=== PATIENT | female | born 1950 | race Caucasian/White ===

== ENCOUNTER 2017-07-19 08:00 | Outpatient (CLI) | payer MEDICARE, OTHER | END 2017-07-19 08:01 | LOC: LAB.R 08:00 | PROVIDERS: ATTEND Nurse Practitioner Primary Care | DX: N30.00 Acute cystitis without hematuria (principal) | CPT/HCPCS: 87086 ==

== ENCOUNTER 2019-05-13 07:33 | Outpatient (CLI) | payer MEDICARE, OTHER ==
[2019-05-13 08:44] LABS: ALBUMIN 4.4 g/dL (3.2-5.5); ALBUMIN/GLOBULIN RATIO 1.8 (1.0-2.2); BILIRUBIN,TOTAL 0.5 mg/dL (0.2-1.0); CALCIUM 9.3 mg/dL (8.5-10.3); CREATININE 0.6 mg/dL (0.4-1.0); TOTAL PROTEIN 6.9 g/dL (6.7-8.2)
[2019-05-13 08:46] LABS: BASOPHILS # (AUTO) 0.1 10^3/uL (0.0-0.1); BASOPHILS % (AUTO) 1.1 %; EOSINOPHILS # (AUTO) 0.2 10^3/uL (0.0-0.7); EOSINOPHILS % (AUTO) 4.2 %; HGB - HEMOGLOBIN 13.4 g/dL (12.0-16.0); LYMPHOCYTES % (AUTO) 37.6 %; MEAN CORPUSCULAR HEMOGLOBIN 30.2 pg (27.0-31.0); MEAN CORPUSCULAR HGB CONC 32.8 g/dL (32.0-36.0); MEAN CORPUSCULAR VOLUME 92.1 fL (81.0-99.0); MONOCYTES # (AUTO) 0.4 10^3/uL (0.0-1.0); MONOCYTES % (AUTO) 7.4 %; NEUTROPHILS # (AUTO) 2.6 10^3/uL (1.5-6.6); NEUTROPHILS % (AUTO) 49.5 %; PLT - PLATELET COUNT 223 10^3/uL (130-450); RED BLOOD COUNT 4.43 10^6/uL (4.20-5.40); RED CELL DISTRIBUTION WIDTH 12.6 % (12.0-15.0); WHITE BLOOD COUNT 5.2 x10^3/uL (4.8-10.8)
[2019-05-13 09:00] LABS: THYROID STIMULATING HORMONE 4.12 uIU/mL (0.34-5.60)
[2019-05-13 09:02] LABS: FREE T4 (FREE THYROXINE) 0.87 ng/dL (0.58-1.64)
== END 2019-05-13 07:34 | disposition home or self-care (01) ==
LOC: LAB 07:33
PROVIDERS: ATTEND Family Medicine
DX: J45.909 Unspecified asthma, uncomplicated (principal); E03.9 Hypothyroidism, unspecified
CPT/HCPCS: 36415; 80053; 84439; 84443; 84481; 85025

== ENCOUNTER 2019-05-29 17:53 | Outpatient (CLI) | payer MEDICARE, OTHER ==
--- NOTE | 2019-05-29 18:25 | XRAY Report ---
Reason: COUGH,BRONCHITIS Procedure Date: 05/29/2019 Accession Number: [id number] / [id number] Procedure: XR - Chest 2 View X-Ray CPT Code: 65991 Final Report FULL RESULT: EXAM: CHEST RADIOGRAPHY EXAM DATE: 05/29/2019 05:59 PM. CLINICAL HISTORY: COUGH, BRONCHITIS. COMPARISON: None. TECHNIQUE: 2 views. FINDINGS: Lungs/Pleura: A large well-defined opacity in the right perihilar location measuring 11 x 9.6 cm, with tiny foci of calcifications within the opacity. Differentials include a pulmonary mass or mediastinal mass. Not likely to be vascular. Detailed evaluation is recommended on a contrast-enhanced CT chest. Mediastinum: Heart and mediastinal contours are unremarkable. Other: None. IMPRESSION: A large 11 x 9.6 cm well-defined opacity in right middle mediastinum with tiny foci of calcifications. Differentials include a pulmonary mass or mediastinal mass. Not likely to be vascular. Detailed evaluation is recommended on a contrast-enhanced CT chest. RADIA
[2019-05-29 19:01] LABS: BASOPHILS # (AUTO) 0.1 10^3/uL (0.0-0.1); BASOPHILS % (AUTO) 0.8 %; EOSINOPHILS # (AUTO) 0.5 10^3/uL (0.0-0.7); EOSINOPHILS % (AUTO) 6.8 %; HGB - HEMOGLOBIN 12.5 g/dL (12.0-16.0); LYMPHOCYTES # (AUTO) 2.5 10^3/uL (1.5-3.5); LYMPHOCYTES % (AUTO) 38.2 %; MEAN CORPUSCULAR HEMOGLOBIN 28.9 pg (27.0-31.0); MEAN CORPUSCULAR HGB CONC 32.3 g/dL (32.0-36.0); MEAN CORPUSCULAR VOLUME 89.6 fL (81.0-99.0); MEAN PLATELET VOLUME 9.7 fL (7.9-10.8); MONOCYTES # (AUTO) 0.5 10^3/uL (0.0-1.0); MONOCYTES % (AUTO) 6.8 %; NEUTROPHILS # (AUTO) 3.2 10^3/uL (1.5-6.6); NEUTROPHILS % (AUTO) 47.2 %; PLT - PLATELET COUNT 212 10^3/uL (130-450); RED BLOOD COUNT 4.32 10^6/uL (4.20-5.40); RED CELL DISTRIBUTION WIDTH 12.2 % (12.0-15.0); WHITE BLOOD COUNT 6.7 x10^3/uL (4.8-10.8)
== END 2019-05-29 17:54 | disposition home or self-care (01) ==
LOC: DI 17:53
PROVIDERS: ATTEND Family Medicine
DX: J98.4 Other disorders of lung (principal); J40 Bronchitis, not specified as acute or chronic; J30.2 Other seasonal allergic rhinitis; R05 Cough; E03.9 Hypothyroidism, unspecified
CPT/HCPCS: 36415; 71046; 85025

== ENCOUNTER 2019-06-06 10:11 | Outpatient (CLI) | payer MEDICARE, OTHER ==
[2019-06-06] MEDS ORDERED: IOVERSOL 320 100 ML VIAL IVP ONE ×2 (10:20→11:33)
--- NOTE | 2019-06-06 11:55 | CT Report ---
Reason: LUNG MASS, COUGH Procedure Date: 06/06/2019 Accession Number: [id number] / [id number] Procedure: CT - CHEST W CPT Code: Final Report FULL RESULT: EXAM: CT CHEST EXAM DATE: 06/06/2019 10:41 AM. CLINICAL HISTORY: Lung mass, cough. COMPARISONS: CHEST 2 VIEW 05/29/2019 5:59 PM. TECHNIQUE: Routine helical CT imaging was performed through the chest. IV contrast: 80 cc of Optiray 320. Reconstructions: Coronal and sagittal. In accordance with CT protocol optimization, one or more of the following dose reduction techniques were utilized for this exam: automated exposure control, adjustment of mA and/or KV based on patient size, or use of iterative reconstructive technique. FINDINGS: Lungs/Pleura: There is a 10.5 x 9.7 x 10.3 cm right midlung mass extending along the right hilum and along the margins of the right mainstem bronchus and right upper and right lower lobe bronchi with associated mass-effect. The mass involves the right upper, right middle and right lower lobe. Within the mass are extensive scattered irregular calcifications. There are interspersed small areas of low density which when measured appear to be of density similar to that of fat although this is not the dominant component of the mass. The margins of the mass are well delineated. There is splaying and displacement of the right pulmonary artery. There are emphysematous changes. Posterior right upper lobe subpleural nodular opacity on image 94, series 4 measuring 8 mm. Within the left lower lobe is a 5.5 mm nodule on image 245, series 4. Anterior right middle lobe 3 mm nodule image 185, series 4 and inferior right middle lobe 2 mm nodule on image 200, series 4. Mediastinum: Heart size is normal. Coronary artery calcified plaque. Visualized thyroid gland is unremarkable. The mass is present along the right hilum displacing portions of the mediastinum on the right as well as a right pulmonary arteries. No enlarged mediastinal or hilar lymph nodes are definitively seen. The largest lymph node is precarinal measuring up to 5-6 mm in short axis dimension. A sending aorta is prominent measuring 4 cm. Thoracic aortic atherosclerosis . Bones: Degenerative changes of the thoracic spine. No acute osseous abnormalities. No osseous lesions. Visualized Abdomen: Abdominal aortic atherosclerosis. Otherwise included portions of the upper abdomen are unremarkable. Other: None. IMPRESSION: 1. Right midlung heterogeneous 10.5 cm mass along the right hilum with extensive involvement of multiple lobes of the right lung with adjacent mass effect. Scattered irregular calcifications are seen throughout the mass with areas of low attenuation also seen although not dominant within the mass which raises the possibility of small foci of fat. The mass has features which can be seen with a hamartoma. There is associated mass effect and narrowing of the right sided bronchi without complete occlusion. Considering the patient's history of visualized emphysematous changes, a primary bronchogenic lesion will need to be excluded. 2. Posterior right upper lobe and left lower lobe nodular opacities which warrant continued surveillance with follow-up chest CT in 6 months. 3. No enlarged mediastinal or hilar lymph nodes. 4. Coronary and thoracic aortic atherosclerosis. [facility] The call report notification system was initiated by Dr. Lowell Martinez at 11:45 AM on 06/06/2019. The above call report findings were discussed with Gerardo Iyer by Dr. Lowell Martinez at 11:52 AM on 06/06/2019.
== END 2019-06-06 10:12 | disposition home or self-care (01) ==
LOC: DI 10:11
PROVIDERS: ATTEND Family Medicine
DX: R91.8 Other nonspecific abnormal finding of lung field (principal); I25.10 Atherosclerotic heart disease of native coronary artery without angina pectoris; I70.0 Atherosclerosis of aorta
CPT/HCPCS: 71260; Q9967

== ENCOUNTER 2020-01-09 17:13 | Outpatient (CLI) | payer MEDICARE, BC | END 2020-01-09 17:14 | disposition home or self-care (01) | LOC: COV 17:13 | PROVIDERS: ATTEND Family Medicine | DX: R50.9 Fever, unspecified (principal); Z20.828 Contact with and (suspected) exposure to other viral communicable diseases; R53.83 Other fatigue; R09.81 Nasal congestion; J02.9 Acute pharyngitis, unspecified ==

== ENCOUNTER 2020-02-17 15:32 | Outpatient (CLI) | payer MEDICARE, BC ==
[2020-02-17 16:01] LABS: BASOPHILS # (AUTO) 0.1 10^3/uL (0.0-0.1); BASOPHILS % (AUTO) 0.6 %; EOSINOPHILS % (AUTO) 0.5 %; HGB - HEMOGLOBIN 13.1 g/dL (12.0-16.0); LYMPHOCYTES # (AUTO) 2.1 10^3/uL (1.5-3.5); LYMPHOCYTES % (AUTO) 26.3 %; MEAN CORPUSCULAR HEMOGLOBIN 28.2 pg (27.0-31.0); MEAN CORPUSCULAR HGB CONC 32.1 g/dL (32.0-36.0); MEAN CORPUSCULAR VOLUME 87.9 fL (81.0-99.0); MEAN PLATELET VOLUME 9.3 fL (7.9-10.8); MONOCYTES # (AUTO) 0.5 10^3/uL (0.0-1.0); MONOCYTES % (AUTO) 6.7 %; NEUTROPHILS # (AUTO) 5.3 10^3/uL (1.5-6.6); NEUTROPHILS % (AUTO) 65.5 %; PLT - PLATELET COUNT 248 10^3/uL (130-450); RED BLOOD COUNT 4.64 10^6/uL (4.20-5.40); RED CELL DISTRIBUTION WIDTH 12.7 % (12.0-15.0); WHITE BLOOD COUNT 8.1 x10^3/uL (4.8-10.8)
[2020-02-17 16:24] LABS: ALBUMIN 4.5 g/dL (3.2-5.5); ALBUMIN/GLOBULIN RATIO 1.6 (1.0-2.2); ALKALINE PHOSPHATASE 111 IU/L (42-121); ALT ALANINE AMINOTRANSFERASE 14 IU/L (10-60); AST ASPARTATE AMINOTRANSFERASE 16 IU/L (10-42); BILIRUBIN,TOTAL 0.4 mg/dL (0.2-1.0); BUN - BLOOD UREA NITROGEN 15 mg/dL (6-20); CALCIUM 9.6 mg/dL (8.5-10.3); CARBON DIOXIDE - CO2 29 mmol/L (21-32); CHLORIDE 97 mmol/L (101-111); CREATININE 0.5 mg/dL (0.4-1.0); GLUCOSE 101 mg/dL (70-100); SODIUM 137 mmol/L (135-145); TOTAL PROTEIN 7.3 g/dL (6.7-8.2)
[2020-02-17 16:58] LABS: CRP - C-REACTIVE PROTEIN < 1.0 mg/dL (0-1.0)
== END 2020-02-17 15:33 | disposition home or self-care (01) ==
LOC: LAB 15:32
PROVIDERS: ATTEND Family Medicine
DX: R63.4 Abnormal weight loss (principal)
CPT/HCPCS: 36415; 80053; 85025; 85651; 86140

== ENCOUNTER 2020-03-13 10:36 | Outpatient (CLI) | payer MEDICARE, BC ==
[2020-03-13 11:33] LABS: THYROID STIMULATING HORMONE 3.04 uIU/mL (0.34-5.60)
[2020-03-13 11:35] LABS: FREE T3 3.26 pg/mL (2.5-3.9); FREE T4 (FREE THYROXINE) 1.06 ng/dL (0.58-1.64)
== END 2020-03-13 10:37 | disposition home or self-care (01) ==
LOC: LAB 10:36
PROVIDERS: ATTEND Nurse Practitioner
DX: R53.83 Other fatigue (principal); R63.4 Abnormal weight loss; E03.9 Hypothyroidism, unspecified
CPT/HCPCS: 36415; 82024; 82533; 84439; 84443; 84481; 86376; 86800

== ENCOUNTER 2020-04-10 19:55 | Outpatient (CLI) | payer MEDICARE, BC | END 2020-04-10 19:56 | disposition home or self-care (01) | LOC: COV 19:55 | PROVIDERS: ATTEND Surgery | DX: Z01.812 Encounter for preprocedural laboratory examination (principal); Z20.822 Contact with and (suspected) exposure to COVID-19; R63.4 Abnormal weight loss; R63.0 Anorexia ==

== ENCOUNTER 2020-04-16 08:40 | Day surgery (SDC) | payer MEDICARE, BC ==
[2020-04-16] MEDS ORDERED: LACTATED RINGERS 1,000 ML IV ONE ×2 (08:51→11:12)
--- NOTE | 2020-04-16 10:25 | ANESTHESIA ---
Pre-Anesthesia VS, & Labs - Diagnosis anorexia and wt loss - Procedure EGD Vital Signs: Temp Pulse Resp BP Pulse Ox 36.2 C L 105 H 12 131/80 H 99 04/16/20 08:51 04/16/20 08:51 04/16/20 08:51 04/16/20 08:51 04/16/20 08:51 Height: 5 ft 8 in Weight (kg): 58.8 kg Body Mass Index: 19.7 BMI Classification: Healthy weight - NPO >8 hours - Is Patient ?: No Home Medications and Allergies Home Medications: Ambulatory Orders Albuterol 1 inhaler INH PRN PRN 04/15/20 Budesonide/Formoterol Fumarate [Symbicort 160-4.5 Mcg Inhaler] 1 inh IN BID 04/15/20 Fexofenadine/Pseudoephedrine [Paulette-D 12 Hour Tablet] 1 tab PO DAILY 04/15/20 Levothyroxine [Synthroid] 50 mcg PO DAILY 04/15/20 Albuterol 1 inhaler INH PRN PRN 04/15/20 Budesonide/Formoterol Fumarate [Symbicort 160-4.5 Mcg Inhaler] 1 inh IN BID 0 04/15/20 Fexofenadine/Pseudoephedrine [Paulette-D 12 Hour Tablet] 1 tab PO DAILY 04/15/20 Levothyroxine [Synthroid] 50 mcg PO DAILY 04/15/20 Allergies/Adverse Reactions: Allergies Allergy/AdvReac Type Severity Reaction Status Date / Time azithromycin [From Zithromax] AdvReac Rash Verified 04/15/20 16:25 tetracycline AdvReac Rash Verified 04/15/20 16:25 Anes History & Medical History - Anesthetic History Anesthesia Complications: reports: No previous complications - Medical History Cardiovascular: reports: Arrhythmia (SVT history), Other Pulmonary: reports: Asthma, COPD, Shortness of breath, Other Gastrointestinal: reports: Other Urinary: reports: None Musculoskeletal: reports: Osteoarthritis Endocrine/Autoimmune: reports: HyPOthyroidism Skin: reports: None Exam General: Alert Dental: WNL Mallampati classification: I Thyromental Distance: greater than 6 cm Respiratory: Lungs clear (on left, absent on right) Cardiovascular: Regular rate Plan Anesthesia Type: MAC Consent for Procedure(s) Verified and Reviewed: Yes Code Status: Attempt Resuscitation ASA classification: 3-Severe systemic disease Is this case an emergency?: No
[2020-04-16] MEDS ORDERED: KETAMINE 500 MG/10 ML VIAL ONE (10:47)
[2020-04-16] MEDS ORDERED: PROPOFOL 200 MG/20 ML VIAL IVP ONE (10:51)
[2020-04-16] MEDS ORDERED: LIDOCAINE-MPF 2% 5 ML VIAL ONE (10:52)
--- NOTE | 2020-04-16 11:09 | ANESTHESIA POST OP EVALUATION ---
Anesthesia Post Eval - Post Anesthesia Eval Vitals: Last Vital Signs Temp 36.2 C L 04/16/20 08:51 Pulse 105 H 04/16/20 08:51 Resp 12 04/16/20 08:51 BP 131/80 H 04/16/20 08:51 Pulse Ox 99 04/16/20 08:51 CV Function Including HR & BP: positive: Stable Pain Control: positive: Satisfactory Nausea & Vomiting: positive: Negative Mental Status: positive: Patient Participates Respiratory Status: Airway Patent Hydration Status: Satisfactory Anesthesia Complications: positive: None
[2020-04-16 11:14] VITALS: BP 118/66
== END 2020-04-16 08:41 | disposition home or self-care (01) ==
LOC: SDS 08:40
PROVIDERS: ATTEND Surgery
PROC: 0DB98ZX Excision of Duodenum, Via Natural or Artificial Opening Endoscopic, Diagnostic (ICD-10-PCS; 2020-04-16)
PROC: 0DB38ZX Excision of Lower Esophagus, Via Natural or Artificial Opening Endoscopic, Diagnostic (ICD-10-PCS; 2020-04-16)
PROC: 0DB48ZX Excision of Esophagogastric Junction, Via Natural or Artificial Opening Endoscopic, Diagnostic (ICD-10-PCS; 2020-04-16)
PROC: 0DB68ZX Excision of Stomach, Via Natural or Artificial Opening Endoscopic, Diagnostic (ICD-10-PCS; principal; 2020-04-16 09:45)
DX: K29.70 Gastritis, unspecified, without bleeding (principal); R63.4 Abnormal weight loss; R11.0 Nausea; R63.0 Anorexia; I47.1 Supraventricular tachycardia; J44.9 Chronic obstructive pulmonary disease, unspecified; E03.9 Hypothyroidism, unspecified; Z79.51 Long term (current) use of inhaled steroids; J45.909 Unspecified asthma, uncomplicated
CPT/HCPCS: 43239; J7120

== ENCOUNTER 2020-05-19 11:17 | Outpatient (CLI) | payer MEDICARE, BC ==
--- NOTE | 2020-05-19 11:46 | XRAY Report ---
PROCEDURE: Chest 2 View X-Ray INDICATIONS: HAMARTOMA/ NAUSEA/ FATIGUE TECHNIQUE: 2 view(s) of the chest. COMPARISON: None. FINDINGS: Surgical changes and devices: Median sternotomy. Lungs and pleura: Status post right pneumonectomy. Left lung is clear. Mediastinum: Mediastinal contours are normal. Heart size is normal. Bones and chest wall: No suspicious bony abnormalities. Soft tissues appear unremarkable. IMPRESSION: Postsurgical sequelae. No acute process. Reviewed by: Germain Rios MD on 05/19/2020 11:45 AM PST Approved by: Germain Rios MD on 05/19/2020 11:45 AM PST Station ID: [id number]
== END 2020-05-19 11:18 | disposition home or self-care (01) ==
LOC: DI 11:17
PROVIDERS: ATTEND Family Medicine
DX: Q85.9 Phakomatosis, unspecified (principal); R11.0 Nausea; R53.83 Other fatigue; Z90.2 Acquired absence of lung [part of]

== ENCOUNTER 2020-05-29 11:04 | Outpatient (CLI) | payer MEDICARE, BC ==
--- NOTE | 2020-05-29 12:39 | CT Report ---
PROCEDURE: CHEST WO INDICATIONS: HAMARTOMA OF R LUNG TECHNIQUE: Noncontrast 5 mm thick sections acquired from the pulmonary apices to the posterior costophrenic angl es. 7 mm thick coronal and sagittal MIP reformats were then acquired. For radiation dose reduction, the following was used: automated exposure control, adjustment of mA and/or kV according to patient size. COMPARISON: 06/06/2019 CT chest. FINDINGS: Image quality: Excellent. No pneumothorax. Large right pleural effusion. Postsurgical changes related to right lung surgical re section. There is associated volume loss. No acute focal consolidation seen in the left lung. Mediastinum: Heart size is normal. Moderate coronary artery calcifications. No pericardial effusion. No mediastinal adenopathy by size criteria. Thoracic aorta and central pulmonary arteries are norm al in size. Esophagus is normal in caliber. No hiatal hernia. Bones and chest wall: No suspicious bony lesions. No vertebral body compression fractures. No axil pj or supraclavicular adenopathy by size criteria. The thyroid is normal in size. Abdomen: Visualized upper abdominal solid organs and bowel loops appear normal in the absence of con trast. IMPRESSION: Postsurgical changes with residual right pleural effusion. No acute consolidation within the left lung. No evidence of metastatic disease. Moderate coronary artery disease. Reviewed by: Armando Meyers MD on 05/29/2020 12:38 PM PST Approved by: Armando Meyers MD on 05/29/2020 12:38 PM PST Station ID: [id number]
== END 2020-05-29 11:05 | disposition home or self-care (01) ==
LOC: DI 11:04
PROVIDERS: ATTEND Internal Medicine
DX: J90 Pleural effusion, not elsewhere classified (principal); I25.10 Atherosclerotic heart disease of native coronary artery without angina pectoris

== ENCOUNTER 2020-07-31 11:38 | Outpatient (CLI) | payer MEDICARE, BC ==
[2020-07-31 11:57] LABS: BASOPHILS # (AUTO) 0.1 10^3/uL (0.0-0.1); BASOPHILS % (AUTO) 0.8 %; EOSINOPHILS # (AUTO) 0.1 10^3/uL (0.0-0.7); EOSINOPHILS % (AUTO) 1.5 %; HGB - HEMOGLOBIN 14.1 g/dL (12.0-16.0); LYMPHOCYTES # (AUTO) 1.6 10^3/uL (1.5-3.5); LYMPHOCYTES % (AUTO) 24.7 %; MEAN CORPUSCULAR HEMOGLOBIN 28.8 pg (27.0-31.0); MEAN CORPUSCULAR HGB CONC 32.8 g/dL (32.0-36.0); MEAN CORPUSCULAR VOLUME 87.8 fL (81.0-99.0); MEAN PLATELET VOLUME 9.3 fL (7.9-10.8); MONOCYTES # (AUTO) 0.5 10^3/uL (0.0-1.0); MONOCYTES % (AUTO) 6.9 %; NEUTROPHILS # (AUTO) 4.3 10^3/uL (1.5-6.6); NEUTROPHILS % (AUTO) 65.9 %; PLT - PLATELET COUNT 290 10^3/uL (130-450); RED CELL DISTRIBUTION WIDTH 13.2 % (12.0-15.0); WHITE BLOOD COUNT 6.5 x10^3/uL (4.8-10.8)
[2020-07-31 12:15] LABS: ALBUMIN 4.4 g/dL (3.2-5.5); ALBUMIN/GLOBULIN RATIO 1.6 (1.0-2.2); ALKALINE PHOSPHATASE 119 IU/L (42-121); ALT ALANINE AMINOTRANSFERASE 15 IU/L (10-60); AST ASPARTATE AMINOTRANSFERASE 19 IU/L (10-42); BILIRUBIN,TOTAL 0.6 mg/dL (0.2-1.0); BUN - BLOOD UREA NITROGEN 13 mg/dL (6-20); CALCIUM 9.8 mg/dL (8.5-10.3); CARBON DIOXIDE - CO2 28 mmol/L (21-32); CHLORIDE 99 mmol/L (101-111); CHOLESTEROL 202 mg/dL; CREATININE 0.5 mg/dL (0.4-1.0); GFR - MDRD 122 (>89); GLUCOSE 108 mg/dL (70-100); HDL CHOLESTEROL 68 mg/dL; LDL CHOLESTEROL,CALCULATED 110 mg/dL; LDL/HDL RATIO 1.6 (<4.4); SODIUM 138 mmol/L (135-145); TOTAL PROTEIN 7.2 g/dL (6.7-8.2); TRIGLYCERIDES 122 mg/dL; VLDL CHOLESTEROL 24 mg/dL
[2020-07-31 17:31] LABS: THYROID STIMULATING HORMONE 1.54 uIU/mL (0.34-5.60)
== END 2020-07-31 11:39 | disposition home or self-care (01) ==
LOC: LAB 11:38
PROVIDERS: ATTEND Family Medicine
DX: R63.4 Abnormal weight loss (principal); Z79.899 Other long term (current) drug therapy; E03.9 Hypothyroidism, unspecified
CPT/HCPCS: 36415; 80053; 80061; 83721; 84443; 85025

== ENCOUNTER 2020-09-08 12:53 | Day surgery (SDC) | payer MEDICARE, BC ==
[2020-09-08] MEDS ORDERED: LACTATED RINGERS 1,000 ML IV ONE ×2 (12:57→15:14)
--- NOTE | 2020-09-08 13:45 | ANESTHESIA ---
Pre-Anesthesia VS, & Labs - Diagnosis screening - Procedure colonoscopy Vital Signs: Temp Pulse Resp BP Pulse Ox 36.6 C 101 H 16 139/83 H 98 09/08/20 13:06 09/08/20 13:06 09/08/20 13:06 09/08/20 13:06 09/08/20 13:06 Height: 5 ft 8 in Weight (kg): 54.8 kg Body Mass Index: 18.3 BMI Classification: Underweight - Is Patient ?: No - Lab Results Lab results reviewed: Yes Home Medications and Allergies Home Medications: Ambulatory Orders Metoclopramide [Reglan] 5 mg PO ACHS 09/07/20 Pantoprazole Sodium 40 mg PO DAILY 09/07/20 Albuterol 1 inhaler INH PRN PRN 04/15/20 Budesonide/Formoterol Fumarate [Symbicort 160-4.5 Mcg Inhaler] 1 inh IN BID 04/15/20 Fexofenadine/Pseudoephedrine [Paulette-D 12 Hour Tablet] 1 tab PO DAILY 04/15/20 Levothyroxine [Synthroid] 50 mcg PO DAILY 04/15/20 Metoclopramide [Reglan] 5 mg PO ACHS 09/07/20 Pantoprazole Sodium 40 mg PO DAILY 09/07/20 Allergies/Adverse Reactions: Allergies Allergy/AdvReac Type Severity Reaction Status Date / Time azithromycin [From Zithromax] AdvReac Rash Verified 04/15/20 16:25 tetracycline AdvReac Rash Verified 04/15/20 16:25 Anes History & Medical History - Anesthetic History Anesthesia Complications: reports: No previous complications Family history of Anesthesia Complications: Denies Family history of Malignant Hyperthermia: Denies - Medical History Cardiovascular: reports: Other Pulmonary: reports: Other Gastrointestinal: reports: GERD, Other Urinary: reports: None Musculoskeletal: reports: None Endocrine/Autoimmune: reports: HyPOthyroidism Skin: reports: None - Surgical History Cardiothoracic: reports: Other Exam General: Alert, Oriented x3, Cooperative Dental: WNL Mouth Openin Fingerbreadth Neck Mobility: Normal Mallampati classification: II Thyromental Distance: 4-6 cm Respiratory: Lungs clear, Normal breath sounds, No respiratory distress Cardiovascular: Regular rate Neurological: Normal speech Mental/Cognitive Status: Alert/Oriented X3, Normal for patient Cognitive Status: Within normal limits Plan Anesthesia Type: Total IV Consent for Procedure(s) Verified and Reviewed: Yes Code Status: Attempt Resuscitation ASA classification: 3-Severe systemic disease Is this case an emergency?: No
[2020-09-08] MEDS ORDERED: MIDAZOLAM 2 MG/2 ML VIAL ONE (14:10)
[2020-09-08] MEDS ORDERED: fentaNYL 100 MCG/2 ML VIAL ONE (14:10)
[2020-09-08] MEDS ORDERED: PROPOFOL 200 MG/20 ML VIAL IVP ONE (14:11)
--- NOTE | 2020-09-08 15:21 | ANESTHESIA POST OP EVALUATION ---
Anesthesia Post Eval - Post Anesthesia Eval Vitals: Last Vital Signs Temp 37.2 C 09/08/20 15:14 Pulse 80 09/08/20 15:19 Resp 17 09/08/20 15:19 BP 90/66 09/08/20 15:19 Pulse Ox 100 09/08/20 15:19 CV Function Including HR & BP: Stable Pain Control: Satisfactory Nausea & Vomiting: Negative Mental Status: Baseline Respiratory Status: Airway Patent Hydration Status: Satisfactory Anesthesia Complications: None
[2020-09-08 15:35] VITALS: BP 97/44
== END 2020-09-08 12:54 | disposition home or self-care (01) ==
LOC: SDS 12:53
PROVIDERS: ATTEND Surgery
PROC: 0DBN8ZZ Excision of Sigmoid Colon, Via Natural or Artificial Opening Endoscopic (ICD-10-PCS; principal; 2020-09-08 14:00)
DX: Z12.11 Encounter for screening for malignant neoplasm of colon (principal); D12.5 Benign neoplasm of sigmoid colon; K64.5 Perianal venous thrombosis; K57.30 Diverticulosis of large intestine without perforation or abscess without bleeding; K64.8 Other hemorrhoids; Z87.891 Personal history of nicotine dependence; Z90.2 Acquired absence of lung [part of]; R63.6 Underweight; Z68.1 Body mass index [BMI] 19.9 or less, adult
CPT/HCPCS: 45380; J7120

== ENCOUNTER 2020-11-01 18:07 | Outpatient (CLI) | payer MEDICARE, BC | END 2020-11-01 18:08 | disposition critical access hospital (66) | LOC: EMS 18:07 | DX: R00.0 Tachycardia, unspecified (principal) | CPT/HCPCS: A0425; A0427 ==

== ENCOUNTER 2020-11-01 18:15 | Emergency (ER) | payer MEDICARE, BC ==
[2020-11-01 18:49] LABS: BASOPHILS % (AUTO) 0.5 %; EOSINOPHILS # (AUTO) 0.1 10^3/uL (0.0-0.7); EOSINOPHILS % (AUTO) 0.8 %; HCT - HEMATOCRIT 36.3 % (37.0-47.0); HGB - HEMOGLOBIN 11.6 g/dL (12.0-16.0); LYMPHOCYTES % (AUTO) 15.6 %; MEAN CORPUSCULAR HEMOGLOBIN 27.4 pg (27.0-31.0); MEAN CORPUSCULAR VOLUME 85.6 fL (81.0-99.0); MEAN PLATELET VOLUME 8.6 fL (7.9-10.8); MONOCYTES # (AUTO) 0.6 10^3/uL (0.0-1.0); MONOCYTES % (AUTO) 9.1 %; NEUTROPHILS # (AUTO) 4.5 10^3/uL (1.5-6.6); NEUTROPHILS % (AUTO) 73.7 %; PLT - PLATELET COUNT 301 10^3/uL (130-450); RED BLOOD COUNT 4.24 10^6/uL (4.20-5.40); RED CELL DISTRIBUTION WIDTH 12.6 % (12.0-15.0); WHITE BLOOD COUNT 6.1 x10^3/uL (4.8-10.8)
[2020-11-01 19:07] LABS: ALBUMIN 3.8 g/dL (3.2-5.5); ALBUMIN/GLOBULIN RATIO 1.3 (1.0-2.2); BILIRUBIN,TOTAL 0.4 mg/dL (0.2-1.0); CALCIUM 8.9 mg/dL (8.5-10.3); CREATININE 0.5 mg/dL (0.4-1.0); POTASSIUM 3.7 mmol/L (3.5-5.0); TOTAL PROTEIN 6.7 g/dL (6.7-8.2)
--- NOTE | 2020-11-01 19:17 | XRAY Report ---
PROCEDURE: Chest 1 View X-Ray INDICATIONS: Chest pain TECHNIQUE: One view of the chest was acquired. COMPARISON: 05/19/2020 FINDINGS: Surgical changes and devices: None. Lungs and pleura: Patient is status post right pneumonectomy and there is appropriate right hemithora x volume loss. The left lung is clear. Mediastinum: Mediastinal contours appear normal. Heart size is normal. No central venous congestio n. Bones and chest wall: Median sternotomy changes. There is chronic asymmetry of the clavicular heads. No suspicious bony lesions. Overlying soft tissues appear unremarkable. IMPRESSION: 1. Clear left lung. 2. Post right pneumonectomy. Reviewed by: Emily Gonzales MD on 11/01/2020 7:15 PM PDT Approved by: Emily Gonzales MD on 11/01/2020 7:15 PM PDT Station ID: [id number]
--- NOTE | 2020-11-01 20:06 | ED Physician Documentation ---
History of Present Illness - Stated complaint Stated Complaint: TACHYCARDIA FOR 45 MINUTES - Chief complaint Chief Complaint: Cardiac - History obtained from History obtained from: Patient - History of Present Illness Timing: Today, How many hours ago (1) Pain level max: 0 Pain level now: 0 - Additonal information Additional information: 70-year-old female presents to the emergency department complaining of palpitations for the past 45 minutes. This has occurred in the past. No real diagnosis given. 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 No chest pain or shortness of breath. Nothing makes it better or worse. Review of Systems Constitutional: denies: Fever, Chills GI: denies: Vomiting, Diarrhea Skin: denies: Rash Musculoskeletal: denies: Neck pain, Back pain Neurologic: denies: Headache PD PAST MEDICAL HISTORY - Past Medical History Cardiovascular: Other Respiratory: Other Endocrine/Autoimmune: HyPOthyroidism GI: GERD, Other : None HEENT: None Psych: None Musculoskeletal: None Derm: None - Past Surgical History Cardiovascular: Other - Present Medications Home Medications: Ambulatory Orders Medication Instructions Recorded Confirmed Albuterol 1 inhaler INH PRN PRN 04/15/20 09/07/20 Budesonide/Formoterol Fumarate 1 inh IN BID 04/15/20 09/07/20 [Symbicort 160-4.5 Mcg Inhaler] Fexofenadine/Pseudoephedrine 1 tab PO DAILY 04/15/20 09/07/20 [Paulette-D 12 Hour Tablet] Levothyroxine [Synthroid] 50 mcg PO DAILY 04/15/20 09/07/20 Metoclopramide [Reglan] 5 mg PO ACHS 09/07/20 11/01/20 Pantoprazole Sodium 40 mg PO DAILY 09/07/20 11/01/20 - Allergies Allergies/Adverse Reactions: Allergies Allergy/AdvReac Type Severity Reaction Status Date / Time azithromycin [From Zithromax] AdvReac Rash Verified 11/01/20 18:27 tetracycline AdvReac Rash Verified 11/01/20 18:27 - Social History Does the pt smoke?: No Smoking Status: Never smoker Does the pt drink ETOH?: No Does the pt have substance abuse?: No PD ED PE NORMAL - Vitals Vital signs reviewed: Yes - General General: Alert and oriented X 3, No acute distress, Well developed/nourished - HEENT HEENT: PERRL, Moist mucous membranes - Neck Neck: Supple, no meningeal sign - Cardiac Cardiac: RRR, No murmur, Strong equal pulses - Respiratory Respiratory: No respiratory distress, Clear bilaterally - Abdomen Abdomen: Soft, Non tender, Non distended - Derm Derm: Warm and dry - Extremities Extremities: No edema - Neuro Neuro: Alert and oriented X 3 - Psych Psych: Normal mood, Normal affect Results - Vitals Vitals: Vital Signs - 24 hr 11/01/20 11/01/20 11/01/20 18:15 18:31 19:05 Temperature Heart Rate 135 H 129 H 96 Respiratory 27 H 18 29 H Rate Blood Pressure 150/104 H 139/104 H 122/101 H O2 Saturation 100 99 100 11/01/20 11/01/20 11/01/20 19:12 19:24 19:43 Temperature 37.1 C Heart Rate 83 Respiratory 16 16 Rate Blood Pressure 124/85 H O2 Saturation 100 11/01/20 11/01/20 19:59 20:21 Temperature Heart Rate 86 88 Respiratory 16 19 Rate Blood Pressure 131/105 H O2 Saturation 96 100 Oxygen O2 Source Room air - EKG (time done) 181 Rate: Rate (enter#) (129) Rhythm: Other (unifocal ectopic atrial tachycardia) Intervals: Normal MD QRS: Normal Ischemia: Other (RVH, q III,aVF) 2000 Rate: Rate (enter#) (84) Rhythm: NSR [place]: Normal Intervals: Normal MD QRS: Normal, Low voltage (RVH) Ischemia: Normal ST segments - Labs Labs: Laboratory Tests 11/01/20 11/01/20 11/01/20 18:43 18:43 18:43 WBC 6.1 RBC 4.24 Hgb 11.6 L Hct 36.3 L MCV 85.6 MCH 27.4 MCHC 32.0 RDW 12.6 Plt Count 301 MPV 8.6 Neut # (Auto) 4.5 Lymph # (Auto) 1.0 L [place] # (Auto) 0.6 Eos # (Auto) 0.1 Baso # (Auto) 0.0 Absolute Nucleated RBC 0.00 Nucleated RBC % 0.0 Sodium 138 Potassium 3.7 Chloride 98 L Carbon Dioxide 29 Anion Gap 11.0 BUN 16 Creatinine 0.5 Estimated GFR (MDRD) 122 Glucose 105 H Calcium 8.9 Total Bilirubin 0.4 AST 17 ALT 17 Alkaline Phosphatase 126 H Troponin I High Sens 2.9 Total Protein 6.7 Albumin 3.8 Globulin 2.9 Albumin/Globulin Ratio 1.3 Lipase 23 - Rads (name of study) cxr Radiology: Final report received, EMP read contemporaneously, See rad report (1. Clear left lung. 2. Post right pneumonectomy. ) PD MEDICAL DECISION MAKING - ED course Complexity details: reviewed results, re-evaluated patient, considered differential, d/w patient ED course: No acute findings on laboratory testing or x-ray. Symptoms resolved in the emergency department. Comparing her 2 EKGs, she appears to have ectopic atrial tachycardia. Likely unifocal. We will have her follow-up with her doctor for further care. Patient is asymptomatic here. Copies of the EKGs were given to the patient to take with her to her cardiology appointment. Patient counseled regarding signs and symptoms for which I believe and urgent re-evaluation would be necessary. Patient with good understanding of and agreement to plan and is comfortable going home at this time This document was made in part using voice recognition software. While efforts are made to proofread this document, sound alike and grammatical errors may occur. Departure - Departure Disposition: 01 Home, Self Care Clinical Impression: Atrial ectopic tachycardia Condition: Good Instructions: ED Palpitations Follow-Up: Gerardo Iyer MD [Primary Care Provider] - Wilton Magaña MD [Provider Admit Priv/Credential] - Within 1 week Comments: Your EKG appears consistent with ectopic atrial tachycardia. Please take the EKGs with you next time you see Dr. Magaña. You can call his office tomorrow to let them know that you were seen tonight and to schedule a follow-up appointment. Return if you worsen. Discharge Date/Time: 11/01/20 20:29
[2020-11-01 20:23] VITALS: BP 131/105
== END 2020-11-01 20:29 | disposition home or self-care (01) ==
LOC: EDUNIT# → ED 18:15
DX: I47.1 Supraventricular tachycardia (principal)
CPT/HCPCS: 36415; 80053; 83690; 84484; 85025; 93005; 99284

== ENCOUNTER 2021-01-01 13:00 | Outpatient (CLI) | payer MEDICARE, BC | END 2021-01-01 13:01 | disposition home or self-care (01) | LOC: COV 13:00 | PROVIDERS: ATTEND Internal Medicine Cardiovascular Disease | DX: Z01.812 Encounter for preprocedural laboratory examination (principal); Z20.822 Contact with and (suspected) exposure to COVID-19 ==

== ENCOUNTER 2021-01-29 13:14 | Outpatient (CLI) | payer MEDICARE, BC ==
--- NOTE | 2021-01-29 13:54 | XRAY Report ---
PROCEDURE: Chest 2 View X-Ray INDICATIONS: BACK PAIN,THORACIC REGION,MASS,LUNG TECHNIQUE: 2 view(s) of the chest. COMPARISON: November 01, 2020. FINDINGS: SUPPORT DEVICES: Sternotomy wires are well aligned. LUNGS/PLEURA: Redemonstrated opacification of the right thorax, compatible pneumonectomy. The left lung is well aerated without pleural effusion, consolidation, pneumothorax. MEDIASTINUM: The cardiomediastinal silhouette is within normal limits. BONES/SOFT TISSUES: No acute abnormality. IMPRESSION: 1.No significant interval change. Reviewed by: Eusebio Hays MD on 01/29/2021 1:53 PM PDT Approved by: Eusebio Hays MD on 01/29/2021 1:53 PM PDT Station ID: [id number]
== END 2021-01-29 13:15 | disposition home or self-care (01) ==
LOC: DI 13:14
PROVIDERS: ATTEND Family Medicine
DX: R05.9 Cough, unspecified (principal); Q85.9 Phakomatosis, unspecified; M54.6 Pain in thoracic spine; R22.2 Localized swelling, mass and lump, trunk

== ENCOUNTER 2021-02-17 11:58 | Outpatient (CLI) | payer MEDICARE, BC ==
--- NOTE | 2021-02-17 15:15 | XRAY Report ---
PROCEDURE: Chest 2 View X-Ray INDICATIONS: PNEUMONIA TECHNIQUE: 2 view(s) of the chest. COMPARISON: 01/29/2021 chest radiograph. FINDINGS: Surgical changes and devices: Postsurgical opacification of the right hemithorax is grossly unchange d. There is associated volume loss as before Lungs: Left lung appears clear Pleura: No pleural effusions or pneumothorax. Mediastinum: Mediastinal contours are normal. Heart size is normal. Bones and chest wall: No suspicious bony abnormalities. Soft tissues appear unremarkable. IMPRESSION: Grossly stable examination. No new focal consolidation. Reviewed by: Armando Meyers MD on 02/17/2021 3:13 PM PST Approved by: Armando Meyers MD on 02/17/2021 3:13 PM PST Station ID: [id number]
== END 2021-02-17 11:59 | disposition home or self-care (01) ==
LOC: DI 11:58
PROVIDERS: ATTEND Family Medicine
DX: J18.9 Pneumonia, unspecified organism (principal)

== ENCOUNTER 2021-10-12 16:59 | Outpatient (CLI) | payer MEDICARE, BC ==
[2021-10-12 17:20] LABS: BASOPHILS % (AUTO) 0.6 %; EOSINOPHILS # (AUTO) 0.3 10^3/uL (0.0-0.7); EOSINOPHILS % (AUTO) 4.5 %; HCT - HEMATOCRIT 40.7 % (37.0-47.0); HGB - HEMOGLOBIN 13.3 g/dL (12.0-16.0); LYMPHOCYTES # (AUTO) 1.2 10^3/uL (1.5-3.5); MEAN CORPUSCULAR HEMOGLOBIN 27.9 pg (27.0-31.0); MEAN CORPUSCULAR HGB CONC 32.7 g/dL (32.0-36.0); MEAN CORPUSCULAR VOLUME 85.5 fL (81.0-99.0); MEAN PLATELET VOLUME 8.4 fL (7.9-10.8); MONOCYTES # (AUTO) 0.6 10^3/uL (0.0-1.0); MONOCYTES % (AUTO) 9.7 %; NEUTROPHILS # (AUTO) 4.3 10^3/uL (1.5-6.6); PLT - PLATELET COUNT 282 10^3/uL (130-450); RED BLOOD COUNT 4.76 10^6/uL (4.20-5.40); RED CELL DISTRIBUTION WIDTH 13.3 % (12.0-15.0); WHITE BLOOD COUNT 6.4 x10^3/uL (4.8-10.8)
[2021-10-12 17:36] LABS: ALBUMIN 4.2 g/dL (3.2-5.5); ALBUMIN/GLOBULIN RATIO 1.4 (1.0-2.2); ALKALINE PHOSPHATASE 136 IU/L (42-121); ALT ALANINE AMINOTRANSFERASE 21 IU/L (10-60); AST ASPARTATE AMINOTRANSFERASE 21 IU/L (10-42); BILIRUBIN,TOTAL 0.5 mg/dL (0.2-1.0); BUN - BLOOD UREA NITROGEN 17 mg/dL (6-20); CALCIUM 9.9 mg/dL (8.5-10.3); CARBON DIOXIDE - CO2 33 mmol/L (21-32); CHLORIDE 93 mmol/L (101-111); CHOL/HDL RATIO 2.8 (<4.4); CHOLESTEROL 177 mg/dL; CREATININE 0.5 mg/dL (0.4-1.0); GFR - MDRD 122 (>89); GLUCOSE 116 mg/dL (70-100); HDL CHOLESTEROL 63 mg/dL; LDL CHOLESTEROL,CALCULATED 96 mg/dL; LDL/HDL RATIO 1.5 (<4.4); POTASSIUM 4.5 mmol/L (3.5-5.0); SODIUM 134 mmol/L (135-145); TOTAL PROTEIN 7.3 g/dL (6.7-8.2); TRIGLYCERIDES 89 mg/dL; VLDL CHOLESTEROL 18 mg/dL
[2021-10-12 17:48] LABS: THYROID STIMULATING HORMONE 2.54 uIU/mL (0.34-5.60)
[2021-10-12 17:49] LABS: FREE T3 3.87 pg/mL (2.5-3.9)
[2021-10-12 17:50] LABS: FREE T4 (FREE THYROXINE) 1.37 ng/dL (0.58-1.64)
== END 2021-10-12 17:00 | disposition home or self-care (01) ==
LOC: LAB 16:59
PROVIDERS: ATTEND Family Medicine
DX: E03.9 Hypothyroidism, unspecified (principal); K31.84 Gastroparesis; Z90.2 Acquired absence of lung [part of]; Z72.4 Inappropriate diet and eating habits
CPT/HCPCS: 36415; 80053; 80061; 83721; 84439; 84443; 84481; 85025

== ENCOUNTER 2022-12-28 11:09 | Emergency (ER) | payer MEDICARE, BC ==
[2022-12-28 11:23] VITALS: BP 130/75
[2022-12-28] MEDS ORDERED: IPRATROPIUM/ALBUTEROL 3 ML NEB INH STA (12:15)
--- NOTE | 2022-12-28 12:19 | ED Physician Documentation ---
History of Present Illness - Stated complaint Stated Complaint: SORE THROAT,SOA - Chief complaint Chief Complaint: Heent - History obtained from History obtained from: Patient - History of Present Illness Timing: How many days ago (3) Pain level max: 0 Pain level now: 0 - Additonal information Additional information: 72-year-old female presents to the emergency department stating that she has had a cough and nasal congestion for the past 3 days. History of a right pneumonectomy. No fevers. The sputum is white/yellow. Has an albuterol inhaler but has not been using it. Feels like she is having some mild shortness of breath. She states that she had a mild sore throat with the cough as well. Took a home COVID test that was negative. No chills. No abdominal pain. Otherwise asymptomatic. Review of Systems Constitutional: denies: Fever, Chills GI: denies: Vomiting, Diarrhea Skin: denies: Rash Musculoskeletal: denies: Neck pain, Back pain Neurologic: denies: Headache PD PAST MEDICAL HISTORY - Past Medical History Past Medical History: Yes Cardiovascular: Other Respiratory: Other Endocrine/Autoimmune: HyPOthyroidism GI: GERD, Other : None HEENT: None Psych: None Musculoskeletal: None Derm: None - Past Surgical History Cardiovascular: Other - Present Medications Home Medications: Ambulatory Orders Medication Instructions Recorded Confirmed Albuterol 1 inhaler INH PRN PRN 04/15/20 09/07/20 Budesonide/Formoterol Fumarate 1 inh IN BID 04/15/20 09/07/20 [Symbicort 160-4.5 Mcg Inhaler] Fexofenadine/Pseudoephedrine 1 tab PO DAILY 04/15/20 09/07/20 [Paulette-D 12 Hour Tablet] Levothyroxine [Synthroid] 50 mcg PO DAILY 04/15/20 09/07/20 Metoclopramide [Reglan] 2.5 mg PO BID 09/07/20 11/01/20 Pantoprazole Sodium 40 mg PO DAILY 09/07/20 11/01/20 Metoprolol Succinate [Toprol Xl] 25 mg PO DAILY 01/04/21 01/04/21 - Allergies Allergies/Adverse Reactions: Allergies Allergy/AdvReac Type Severity Reaction Status Date / Time azithromycin [From Zithromax] AdvReac Rash Verified 11/01/20 18:27 tetracycline AdvReac Rash Verified 11/01/20 18:27 - Social History Does the pt smoke?: No Smoking Status: Never smoker Does the pt drink ETOH?: No Does the pt have substance abuse?: No PD ED PE NORMAL - Vitals Vital signs reviewed: Yes - General General: Alert and oriented X 3, No acute distress - HEENT HEENT: PERRL, Ears normal, Moist mucous membranes, Pharynx benign - Neck Neck: Supple, no meningeal sign - Cardiac Cardiac: RRR, No murmur, Strong equal pulses - Respiratory Respiratory: No respiratory distress, Other (Mild wheezing bilaterally) - Abdomen Abdomen: Soft, Non tender, Non distended - Derm Derm: Warm and dry, No rash - Neuro Neuro: Alert and oriented X 3 - Psych Psych: Normal mood, Normal affect Results - Vitals Vitals: Vital Signs - 24 hr 12/28/22 12/28/22 12/28/22 11:17 12:33 14:43 Temperature 36.5 C Heart Rate 81 78 85 Respiratory 18 15 18 Rate Blood Pressure 130/75 O2 Saturation 97 100 Oxygen O2 Source Room air - Labs Labs: Laboratory Tests 12/28/22 13:00 Nasal Adenovirus (PCR) NOT DETECTED Nasal B. parapertussis DNA (PCR) NOT DETECTED Nasal Coronavir 229E PCR NOT DETECTED Nasal Coronavir HKU1 PCR NOT DETECTED Nasal Coronavir NL63 PCR NOT DETECTED Nasal Coronavir OC43 PCR NOT DETECTED Nasal Enterovir/Rhinovir PCR DETECTED A Nasal Influenza B PCR NOT DETECTED Nasal Influenza A PCR NOT DETECTED Nasal Parainfluen 1 PCR NOT DETECTED Nasal Parainfluen 2 PCR NOT DETECTED Nasal Parainfluen 3 PCR NOT DETECTED Nasal Parainfluen 4 PCR NOT DETECTED Nasal RSV (PCR) NOT DETECTED Nasal B.pertussis DNA PCR NOT DETECTED Nasal C.pneumoniae (PCR) NOT DETECTED Srikanth Human Metapneumo PCR NOT DETECTED Nasal M.pneumoniae (PCR) NOT DETECTED Nasal SARS-CoV-2 (PCR) NOT DETECTED - Rads (name of study) cxr Relevant Findings:: Final report received, See rad report PD Medical Decision Making - ED course Complexity details: reviewed results, re-evaluated patient, considered differential, d/w patient ED course: Patient feels better after nebulizer treatment. She does have a albuterol inhaler at home with spacer and can use this. No evidence of pneumonia on chest x-ray. Respiratory PCR is positive for rhinovirus, otherwise negative. We will have her follow-up with her PCP for further care. No hypoxia. No respiratory distress. No fevers. Patient counseled regarding signs and symptoms for which I believe and urgent re-evaluation would be necessary. Patient with good understanding of and agreement to plan and is comfortable going home at this time This document was made in part using voice recognition software. While efforts are made to proofread this document, sound alike and grammatical errors may occur. Departure - Departure Disposition: 01 Home, Self Care Clinical Impression: Rhinovirus Condition: Good Instructions: ED Viral Syndrome Follow-Up: Gerardo Iyer MD [Primary Care Provider] - Comments: You have tested positive for rhinovirus today. This is a viral illness and will improve on its own. There is no evidence of pneumonia on your chest x-ray. Continue your current medications at home and follow-up with your doctor as needed for further care. Return if you worsen. Forms: PCP List Discharge Date/Time: 12/28/22 14:45
--- NOTE | 2022-12-28 13:58 | XRAY Report ---
PROCEDURE: Chest 2 View X-Ray INDICATIONS: cough, h/o R pneumonectomy TECHNIQUE: 2 views of the chest were acquired. COMPARISON: 02/17/2021, CT 05/29/2020 FINDINGS: Surgical changes and devices: Sternotomy changes are noted. Lungs and pleura: Complete opacification of the right hemithorax is again seen. There is a presumed right-sided pleural effusion, although this is not well seen. The left lung appears clear. No pneumot horax or pleural effusion can be seen on the left. Mediastinum: There is shift of the mediastinum to the right. The mediastinal contours do not appear enlarged. Bones and chest wall: No suspicious bony lesions. Overlying soft tissues appear unremarkable. IMPRESSION: Stable study with postoperative change and complete opacification of the right hemithorax. The left lung is unremarkable. Reviewed by: Chalino Brooks MD on 12/28/2022 12:56 PM AKDT Approved by: Chalino Brooks MD on 12/28/2022 12:56 PM AKDT Station ID: [id number]
[2022-12-28 14:27] LABS: CORONAVIRUS 229E-RESP PCR NOT DETECTED; CORONAVIRUS HKU1-RESP PCR NOT DETECTED; CORONAVIRUS NL63-RESP PCR NOT DETECTED; CORONAVIRUS OC43-RESP PCR NOT DETECTED; HUMAN METAPNEUMOVIRUS NOT DETECTED; SARS-CoV-2 -RESP PCR PANEL NOT DETECTED
[2022-12-28 14:28] LABS: B. PARAPERTUSSIS- RESP PCR PAN NOT DETECTED; B. PERTUSSIS- RESP PCR PANEL NOT DETECTED; C. PNEUMONIAE- RESP PCR PANEL NOT DETECTED; INFLUENZA A- RESP PCR PANEL NOT DETECTED; INFLUENZA B - RESP PCR PANEL NOT DETECTED; M. PNEUMONIAE- RESP PCR PANEL NOT DETECTED; PARAINFLUENZA VIRUS 1 NOT DETECTED; PARAINFLUENZA VIRUS 2 NOT DETECTED; PARAINFLUENZA VIRUS 3 NOT DETECTED; PARAINFLUENZA VIRUS 4 NOT DETECTED; RHINOVIRUS/ENTEROVIRUS DETECTED; RSV- RESP PCR PANEL NOT DETECTED
[2022-12-28 14:49] VITALS: O2SAT 100
== END 2022-12-28 14:45 | disposition home or self-care (01) ==
LOC: ED 11:09
DX: B34.8 Other viral infections of unspecified site (principal); Z20.822 Contact with and (suspected) exposure to COVID-19; E03.9 Hypothyroidism, unspecified; Z79.899 Other long term (current) drug therapy; Z79.51 Long term (current) use of inhaled steroids
CPT/HCPCS: 87633; 94640; 99283; 99284

== ENCOUNTER 2023-05-17 13:09 | Outpatient (CLI) | payer MEDICARE, BC ==
[2023-05-17] MEDS ORDERED: iohexoL-300 100 ML VIAL ONE (13:41)
[2023-05-17] MEDS ORDERED: DIATRIZOATE MEGLU/DIATRIZO SOD 30 ML BOTTLE PO ONE (13:41)
--- NOTE | 2023-05-17 17:49 | CT Report ---
PROCEDURE: Abdomen/Pelvis W INDICATIONS: POOR APPETITE, NAUSEA CONTRAST: Omni 300 100ml TECHNIQUE: After the administration of intravenous contrast, a CT scan of the abdomen and pelvis was performed. Images were recorded and evaluated at appropriate window settings. Reformats: coronal and sagittal. F or radiation dose reduction, the following was used: automated exposure control, adjustment of mA and /or kV according to patient size. COMPARISON: Chest CT 05/29/2020 FINDINGS: Image quality: Diagnostic. Lower chest: Right pneumonectomy with fluid in the right chest cavity. Patulous esophagus containing intraluminal contrast, presumably reflux. Liver: Ill-defined region of hypoattenuating signal in segment 6 of the liver (series 2, image 106). Patent portal vein. Gallbladder and biliary tree: Cholelithiasis without wall thickening. No biliary dilation. Spleen: No splenomegaly. Pancreas: No pancreatic ductal dilation. Adrenals: No adrenal nodule. Kidneys and ureters: No hydronephrosis. No renal cystic lesion which requires follow up. No solid mas s. Stomach, bowel and peritoneum: No bowel distension. No pathologic free fluid. Diverticulosis without evidence of diverticulitis. Lymph nodes: No central or retroperitoneal adenopathy. Vessels: No infrarenal aortic aneurysm. PELVIS Reproductive organs: Calcified uterine fibroid. Bladder: No abnormal wall thickening, accounting for underdistention. Pelvic lymph nodes: No pelvic adenopathy by size criteria. Bones: No aggressive osseous abnormality. Other: No significant ventral or inguinal hernia. IMPRESSION: Ill-defined region of hypoattenuating signal in segment 6 of the liver. Consider further evaluation w ith liver MRI with contrast (liver mass protocol). Patulous esophagus with gastroesophageal reflux. Right pneumonectomy with right-sided effusion. Reviewed by: Rosalino Crawford MD on 05/17/2023 5:47 PM PST Approved by: Rosalino Crawford MD on 05/17/2023 5:47 PM PST Station ID: [id number]
[2023-05-17] MEDS: iohexoL-300 100 ML VIAL IVP ONE (19:46)
== END 2023-05-17 13:10 | disposition home or self-care (01) ==
LOC: DI 13:09
PROVIDERS: ATTEND Internal Medicine Gastroenterology
DX: R93.2 Abnormal findings on diagnostic imaging of liver and biliary tract (principal); K21.9 Gastro-esophageal reflux disease without esophagitis; J90 Pleural effusion, not elsewhere classified; Z90.2 Acquired absence of lung [part of]; R63.0 Anorexia; R11.0 Nausea
CPT/HCPCS: 74177; Q9963; Q9967; 36415; 80053; 84443; 85025

== ENCOUNTER 2023-05-17 13:14 | Outpatient (CLI) | payer MEDICARE, BC ==
[2023-05-17 13:30] LABS: BASOPHILS % (AUTO) 0.5 %; EOSINOPHILS % (AUTO) 0.4 %; HCT - HEMATOCRIT 43.6 % (37.0-47.0); HGB - HEMOGLOBIN 13.6 g/dL (12.0-16.0); LYMPHOCYTES # (AUTO) 1.1 10^3/uL (1.5-3.5); LYMPHOCYTES % (AUTO) 14.9 %; MEAN CORPUSCULAR HEMOGLOBIN 27.6 pg (27.0-31.0); MEAN CORPUSCULAR HGB CONC 31.2 g/dL (32.0-36.0); MEAN CORPUSCULAR VOLUME 88.4 fL (81.0-99.0); MEAN PLATELET VOLUME 9.5 fL (7.9-10.8); MONOCYTES # (AUTO) 0.5 10^3/uL (0.0-1.0); MONOCYTES % (AUTO) 6.6 %; NEUTROPHILS # (AUTO) 5.7 10^3/uL (1.5-6.6); NEUTROPHILS % (AUTO) 77.3 %; PLT - PLATELET COUNT 236 10^3/uL (130-450); RED BLOOD COUNT 4.93 10^6/uL (4.20-5.40); RED CELL DISTRIBUTION WIDTH 13.2 % (12.0-15.0); WHITE BLOOD COUNT 7.4 x10^3/uL (4.8-10.8)
[2023-05-17 14:12] LABS: THYROID STIMULATING HORMONE 2.88 uIU/mL (0.34-5.60)
[2023-05-17 15:09] LABS: ALBUMIN 4.4 g/dL (3.2-5.5); ALBUMIN/GLOBULIN RATIO 1.3 (1.0-2.2); BILIRUBIN,TOTAL 0.6 mg/dL (0.2-1.0); CALCIUM 10.3 mg/dL (8.5-10.3); CREATININE 0.6 mg/dL (0.6-1.3); POTASSIUM 3.9 mmol/L (3.5-4.5); TOTAL PROTEIN 7.8 g/dL (6.4-8.9)
== END 2023-05-17 13:15 | disposition home or self-care (01) ==
LOC: LAB 13:14
PROVIDERS: ATTEND Internal Medicine Gastroenterology
DX: R63.0 Anorexia (principal); R11.0 Nausea
CPT/HCPCS: 36415; 80053; 84443; 85025

== ENCOUNTER 2023-05-24 15:16 | Outpatient (CLI) | payer MEDICARE, BC ==
[~2023-05-24 15:16] MED LIST: GADOTERATE MEGLUMINE 10 MMOL/20 ML VIAL ONE
--- NOTE | 2023-05-24 17:26 | MRI Report ---
PROCEDURE: Abdomen W/WO INDICATIONS: ABN CT OF LIVER CONTRAST: clariscan 11.8ml TECHNIQUE: Coronal ultra fast SE, axial 2D spoiled GE in- and [id number]; axial breath-hold T2 fast SE. Dynam ic axial ultra fast GE during the administration of contrast; post-contrast coronal ultra fast GE or 2D spoiled GE with fat saturation from the hepatic dome to the iliac crests. Optional diffusion weig hted imaging and ADC may be performed. COMPARISON: 05/17/2023 FINDINGS: Image quality: Diagnostic, but moderate motion degraded Lower chest: Not well evaluated on MRI. Right pneumonectomy cavity. Liver: No focal suspicious liver lesion. The previously identified heterogeneous at the inferior tip of segment 6, without discrete MRI correlate, likely representing beam hardening artifact from the ad jacent oral contrast. Gallbladder and biliary system: Cholelithiasis. Nondilated biliary system Pancreas: No significant dilation of the duct, but they parenchyma appears moderately atrophic and is not well seen. Spleen: Nonenlarged Adrenals: Not well seen due to motion, no large nodule Kidneys: No large mass or hydronephrosis. Suspected cysts are present. Vessels and lymph nodes: No abdominal aortic aneurysm.. The portal system is favored to be patent, bu t obscured by motion. No pathologic lymph nodes by size criteria. Bowel and peritoneum: No pathologic ascites. No bowel obstruction. Body wall: Unremarkable Pelvis: Not imaged on this study Bones: Degenerative findings. No suspicious enhancement. IMPRESSION: No suspicious focal liver lesion. The previously described CT abnormality may represent beam hardenin g artifact from the adjacent dense oral contrast in the bowel. Attention on routine oncologic surveil niyah imaging. Right pneumonectomy cavity is partially seen. Reviewed by: Riley Botello MD on 05/24/2023 5:25 PM PST Approved by: Riley Botello MD on 05/24/2023 5:25 PM PST Station ID: [id number]
[2023-05-24] MEDS: GADOTERATE MEGLUMINE 10 MMOL/20 ML VIAL IVP ONE (18:26)
== END 2023-05-24 15:17 | disposition home or self-care (01) ==
LOC: DI 15:16
PROVIDERS: ATTEND Internal Medicine Gastroenterology
DX: R93.2 Abnormal findings on diagnostic imaging of liver and biliary tract (principal)
CPT/HCPCS: 74183; A9575